=== PATIENT | female | born 1990 | race Caucasian/White ===

== ENCOUNTER 2023-10-08 14:53 | Outpatient (CLI) | payer OTHER | END 2023-10-08 14:54 | disposition home or self-care (01) | LOC: PRENATAL 14:53 | PROVIDERS: ATTEND Obstetrics & Gynecology Maternal & Fetal Medicine | DX: O35.9XX0 Maternal care for (suspected) fetal abnormality and damage, unspecified, not applicable or unspecified (principal); O44.00 Complete placenta previa NOS or without hemorrhage, unspecified trimester; O09.529 Supervision of elderly multigravida, unspecified trimester; O99.280 Endocrine, nutritional and metabolic diseases complicating pregnancy, unspecified trimester; Z3A.20 20 weeks gestation of pregnancy ==